=== PATIENT | female | born 1995 | race Caucasian/White ===

== ENCOUNTER 2018-10-08 18:00 | Emergency (ER) | payer MEDICARE, OTHER ==
[~2018-10-08] VITALS: Ht 157.5 cm; Wt 61.1 kg
--- NOTE | 2018-10-08 18:28 | PHYS DOC ---
Past History Past Medical History: No Pertinent History Past Surgical History: Other Additional Past Surgical Histo: wisdom teeth Smoking: Non-smoker Alcohol Use: Heavy Drug Use: Marijuana Adult General Chief Complaint Chief Complaint: ABDOMINAL PAIN HPI HPI Patient is a 23-year-old female presents with pelvic pain. This started 2-3 weeks ago, and has been getting worse over time. She has noted some bleeding with urination. This has been waxing and waning and not currently bleeding now. Uncertain as to whether the source is the urine or vaginal bleeding. She only notes that when she urinates. Denies any vaginal discharge. Increased pain with movement. No home medicines have been taken. Reports that the pain is severe. No radiation. No previous history of this discomfort. No prior surgical history.[] Review of Systems Review of Systems Constitutional: Denies fever or chills [] Eyes: Denies change in visual acuity, redness, or eye pain [] HENT: Denies nasal congestion or sore throat [] Respiratory: Denies cough or shortness of breath [] Cardiovascular: No chest pain or palpitations[] GI: See history of present illness[] : Denies dysuria, see history of present illness[] Musculoskeletal: Denies back pain or joint pain [] Integument: Denies rash or skin lesions [] Neurologic: Denies headache, focal weakness or sensory changes [] Endocrine: Denies polyuria or polydipsia [] All other systems were reviewed and found to be within normal limits, except as documented in this note. Allergies Allergies Allergies Coded Allergies Type Severity Reaction Last Updated Verified Penicillins Allergy Unknown 10/08/18 Yes amoxicillin Allergy Unknown 10/08/18 Yes aspirin Allergy Unknown 10/08/18 Yes Physical Exam Physical Exam Constitutional: Well developed, well nourished, no acute distress, non-toxic ap pearance. [] HENT: Normocephalic, atraumatic, bilateral external ears normal, oropharynx moist, no oral exudates, nose normal. [] Eyes: PERRLA, EOMI, conjunctiva normal, no discharge. [] Neck: Normal range of motion, no tenderness, supple, no stridor. [] Cardiovascular:Heart rate regular rhythm, no murmur [] Lungs & Thorax: Bilateral breath sounds clear to auscultation [] Abdomen: Bowel sounds normal, soft, lower abdominal tenderness, midline, no rebound, no guarding, no rigidity, no masses, no pulsatile masses. Pelvic exam: External genitalianormal, no lesions. Vaginal vaultno blood, no significant discharge. Cervixnulliparous os, no bleeding, no cervical motion tenderness[] Skin: Warm, dry, no erythema, no rash. [] Back: No tenderness, no CVA tenderness. [] Extremities: No tenderness, no cyanosis, no clubbing, ROM intact, no edema. [] Neurologic: Alert and oriented X 3, normal motor function, normal sensory function, no focal deficits noted. [] Psychologic: Affect normal, judgement normal, mood normal. [] EKG EKG [] Radiology/Procedures Radiology/Procedures PROCEDURE: PELVIS COMPLETE Pelvic ultrasound to include transabdominal and transvaginal imaging 10/08/2018 CLINICAL HISTORY: Pelvic pain. TECHNIQUE: Using the distended urinary bladder as a sonographic window, a real-time ultrasound examination of the pelvis was performed. Additionally in an attempt to better evaluate the uterus and adnexa, a transvaginal ultrasound study was performed. Multiple images were obtained. FINDINGS: The uterus is within normal limits in size and echogenicity. It measures 6.8 x 4.5 x 2.8 cm in longitudinal, transverse, and AP dimensions. The endometrial echo complex measures 4 mm in thickness which is within normal limits. A very small amount of fluid is seen within the endometrial canal. No focal abnormality of the uterus is seen. Both ovaries are within normal limits in size. The right ovary measures 2.7 x 2.1 x 1.7 cm in size. The left ovary measures 3.5 x 2.6 x 2.3 cm in size. A 2.2 cm cyst is seen within the left ovary. No free fluid is seen. IMPRESSION: 2.2 cm simple left ovarian cyst.[] Course & Med Decision Making Course & Med Decision Making Pertinent Labs and Imaging studies reviewed. (See chart for details) ED course: Patient arrived, was placed in bed, and tolerated exam well. Pelvic exam was performed with cooler conveyor loader. After the return of the urinalysis, she was given an initial dose of Rocephin which she tolerated well. She was transported to and from [facility] without any complications. After the return of the laboratory and imaging findings, these were discussed with the patient and her mother who voiced understanding. All questions were answered. She was discharged in improved condition. Medical decision making: There is no evidence of nor ectopic . There is evidence of a urinary tract infection given the to numerous to count red cells and white cells in the urine. Given the symptomatology, will also cover for the possibility of pelvic inflammatory disease. It is noted that she has evidence of bacterial vaginosis on the prep. As well as the discomfort, will treat these with Flagyl for the BV as well as PID, and doxycycline which should cover urine as well as PID. There is no evidence of a tubo-ovarian abscess. No evidence of appendicitis. Gonorrhea and chlamydia via PCR is p ending.[] Dragon Disclaimer Dragon Disclaimer This electronic medical record was generated, in whole or in part, using a voice recognition dictation system. Departure Departure: Impression: Primary Impression: Urinary tract infection Additional Impressions: Bacterial vaginosis Pelvic inflammatory disease Disposition: 01 HOME, SELF-CARE Condition: IMPROVED Patient Instructions: Bacterial Vaginosis, Pelvic Inflammatory Disease, Urinary Tract Infection Additional Instructions: Drink plenty of fluids. Follow-up with your regular doctor in 2 days. If you do not have regular doctor list of local clinics will be provided for you. Return to the ER if worsening pain or any other concerns. Scripts Tramadol Hcl (TRAMADOL HCL) 50 Mg Tablet 50 MG PO PRN Q6HRS PRN for PAIN, #20 TAB Prov: MAUREEN RITCHIE DO 10/08/18 Metronidazole (FLAGYL) 500 Mg Tablet 500 MG PO BID for BV for 14 Days, #28 TAB Prov: MAUREEN RITCHIE DO 10/08/18 Meloxicam (MELOXICAM) 7.5 Mg Tablet 7.5 MG PO DAILY for PAIN, #20 TAB Prov: MAUREEN RITCHEI DO 10/08/18 Doxycycline Hyclate (DOXYCYCLINE HYCLATE) 100 Mg Tablet 1 TAB PO BID for UTI, #28 TAB Prov: MAUREEN RITCHIE DO 10/08/18 Problem Qualifiers Primary Impression: Urinary tract infection Urinary tract infection type: site unspecified Hematuria presence: with hematuria Qualified Codes: N39.0 - Urinary tract infection, site not specified; R31.9 - Hematuria, unspecified MAUREEN RITCHIE DO Oct 08, 2018 18:28
[2018-10-08] MEDS ORDERED: ONDANSETRON PF 4 MG/2 ML VIAL. IV ONE (18:30)
[2018-10-08] MEDS ORDERED: IV NORMAL SALINE 1,000ML 1,000 ML IV ONE (18:30)
[2018-10-08] MEDS ORDERED: ACETAMINOPHEN 500 MG TABLET PO ONE (18:30)
[2018-10-08 19:06] LABS: PREG TEST PT QUAL NEGATIVE (NEG)
[2018-10-08 19:16] LABS: ALBUMIN 4.7 g/dL (3.4-5.0); ALBUMIN/GLOBULIN RATIO 1.3 (1.0-1.7); CALCIUM 10.3 mg/dL (8.5-10.1); CREATININE 0.9 mg/dL (0.6-1.0); GFR 76.3; POTASSIUM 3.4 mmol/L (3.5-5.1); TOTAL BILIRUBIN 0.9 mg/dL (0.2-1.0); TOTAL PROTEIN 8.3 g/dL (6.4-8.2)
[2018-10-08 19:16] LABS: BACTERIA,URINE MOD /HPF (0-FEW); BILIRUBIN,URINE NEG (NEG); CLARITY,URINE TURBID; COLOR,URINE YELLOW; GLUCOSE,URINE NEG (NEG); NITRITE,URINE NEG (NEG); RBC,URINE TNTC /HPF (0-2); SQUAMOUS EPITHELIAL CELL,UR MOD /LPF; UROBILINOGEN,URINE 1 mg/dL (0.2 mg/dL); WBC,URINE TNTC /HPF (0-4)
[2018-10-08 19:17] LABS: BASO # 0.1 x10^3/uL (0.0-0.2); BASO % 0 % (0-3); EOS % 0 % (0-3); HEMATOCRIT 46.6 % (36.0-47.0); HEMOGLOBIN 15.9 g/dL (12.0-15.5); LYMPH # 2.9 x10^3/uL (1.0-4.8); LYMPH % 18 % (24-48); MEAN CORPUSCULAR HEMOGLOBIN 30 pg (25-35); MEAN CORPUSCULAR HGB CONC 34 g/dL (31-37); MEAN CORPUSCULAR VOLUME 88 fL (79-100); MONO # 1.1 x10^3/uL (0.0-1.1); MONO % 7 % (0-9); NEUT # 12.2 x10^3uL (1.8-7.7); NEUT % 75 % (31-73); PLATELET COUNT 338 x10^3/uL (140-400); RED BLOOD COUNT 5.27 x10^6/uL (3.50-5.40); RED CELL DISTRIBUTION WIDTH 12.3 % (11.5-14.5); WHITE BLOOD COUNT 16.3 x10^3/uL (4.0-11.0)
[2018-10-08] MEDS ORDERED: IV NORMAL SALINE 50ML 50 ML ONE (19:51)
[2018-10-08] MEDS ORDERED: cefTRIAXone SODIUM 1 GM VIAL ONE (19:52)
[2018-10-08 20:16] LABS: % BASOS 2 % (0-3); % EOS 1 % (0-5); % LYMPHS 23 % (24-48); % MONOS 11 % (0-10); % SEGS 63 % (35-66)
[2018-10-08 20:18] LABS: ANISOCYTOSIS SLIGHT; PLT ESTIMATE ADEQUATE (ADEQUATE)
--- NOTE | 2018-10-08 21:09 | RAD ---
Pelvic ultrasound to include transabdominal and transvaginal imaging 10/08/2018 CLINICAL HISTORY: Pelvic pain. TECHNIQUE: Using the distended urinary bladder as a sonographic window, a real-time ultrasound examination of the pelvis was performed. Additionally in an attempt to better evaluate the uterus and adnexa, a transvaginal ultrasound study was performed. Multiple images were obtained. FINDINGS: The uterus is within normal limits in size and echogenicity. It measures 6.8 x 4.5 x 2.8 cm in longitudinal, transverse, and AP dimensions. The endometrial echo complex measures 4 mm in thickness which is within normal limits. A very small amount of fluid is seen within the endometrial canal. No focal abnormality of the uterus is seen. Both ovaries are within normal limits in size. The right ovary measures 2.7 x 2.1 x 1.7 cm in size. The left ovary measures 3.5 x 2.6 x 2.3 cm in size. A 2.2 cm cyst is seen within the left ovary. No free fluid is seen. IMPRESSION: 2.2 cm simple left ovarian cyst. Electronically signed by: Antoine Chin MD (10/08/2018 9:06 PM) [facility]
[2018-10-08] MEDS ORDERED: KETOROLAC 15 MG/ML VIAL. IV ONE (21:30)
[2018-10-08] MEDS ORDERED: DOXY100T PO (21:31)
[2018-10-08] MEDS ORDERED: MELO7.5T29 PO (21:31)
[2018-10-08] MEDS ORDERED: METR500T PO (21:31)
[2018-10-08] MEDS ORDERED: TRAM50TA PO (21:31)
[2018-10-08 21:40] VITALS: BP 120/70
== END 2018-10-08 21:44 | disposition home or self-care (01) ==
LOC: ER 18:00
DX: N39.0 Urinary tract infection, site not specified (principal); N76.0 Acute vaginitis; B96.89 Other specified bacterial agents as the cause of diseases classified elsewhere; N73.9 Female pelvic inflammatory disease, unspecified; N83.202 Unspecified ovarian cyst, left side; R31.9 Hematuria, unspecified; F10.20 Alcohol dependence, uncomplicated; Z88.0 Allergy status to penicillin; Z88.1 Allergy status to other antibiotic agents; Z88.6 Allergy status to analgesic agent; Y90.9 Presence of alcohol in blood, level not specified
CPT/HCPCS: 36415; 76856; 80053; 81001; 83690; 84702; 84703; 85007; 85025; 86901; 87086; 87491; 87591; 96365; 96375; 99285; J0696; J1885; J2405; Q0111; J7030

== ENCOUNTER 2019-11-12 18:55 | Emergency (ER) | payer OTHER ==
[~2019-11-12] VITALS: Ht 157.5 cm; Wt 61.1 kg
[~2019-11-12 18:55] MED LIST: DOXY100T PO; MELO7.5T29 PO; METR500T PO; TRAM50TA PO
--- NOTE | 2019-11-12 19:14 | PHYS DOC ---
Past History Past Medical History: No Pertinent History Past Surgical History: Other Additional Past Surgical Histo: wisdom teeth Smoking: Non-smoker Alcohol Use: Heavy Drug Use: Marijuana General Adult EDM: Chief Complaint: VAGINAL BLEEDING HPI: HPI: ".. I am having vaginal bleeding and have multiple babies.. my OB at [facility]... she said to come in to ED and get checked...." Patient is a 24 year old female who presents with threaten miscarry complaints.. Patient has had some cramping and increased spotting. This is patient's first . Previous ultrasound showed a possible 2 gestational sacs. Patient reports were no heartbeats noted. Patient estimates she is approximately 6 weeks . Has had 6 lifetime sex partners. No history of STDs. No history of trauma. No history of coagulopathy. No history of immunosuppression. No recent travel outside [facility]. 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 Review of Systems: Review of Systems: Constitutional: Denies fever or chills Eyes: Denies change in visual acuity HENT: Denies nasal congestion or sore throat Respiratory: Denies cough or shortness of breath Cardiovascular: Denies chest pain or edema GI: complaints of pelvic cramping and spotting, , nausea,. Denies vomiting, bloody stools or diarrhea : Denies dysuria Musculoskeletal: Denies back pain or joint pain Integument: Denies rash Neurologic: Denies headache, focal weakness or sensory changes Endocrine: Denies polyuria or polydipsia Lymphatic: Denies swollen glands Psychiatric: Denies depression or anxiety Heart Score: Risk Factors: Risk Factors: DM, Current or recent (<one month) smoker, HTN, HLP, family history of CAD, obesity. Risk Scores: Score 0 - 3: 2.5% MACE over next 6 weeks - Discharge Home Score 4 - 6: 20.3% MACE over next 6 weeks - Admit for Clinical Observation Score 7 - 10: 72.7% MACE over next 6 weeks - Early Invasive Strategies Family History: Family History: Noncontributory Current Medications: Current Meds: See nursing for home meds Allergies: Allergies: Allergies Coded Allergies Type Severity Reaction Last Updated Verified Penicillins Allergy Unknown 10/08/18 Yes amoxicillin Allergy Unknown 10/08/18 Yes aspirin Allergy Unknown 10/08/18 Yes Physical Exam: PE: Constitutional: Well developed, well nourished, emotional distress, non-toxic appearance. [] HENT: Normocephalic, atraumatic, bilateral external ears normal, oropharynx moist, no oral exudates, nose normal. [] Eyes: PERRLA, EOMI, conjunctiva normal, no discharge. [] Neck: Normal range of motion, no tenderness, supple, no stridor. [] Cardiovascular:Heart rate regular rhythm, no murmur [] Lungs & Thorax: Bilateral breath sounds equal at apex on auscultation [] Abdomen: Bowel sounds normal, soft, no tenderness, no masses, no pulsatile masses. [] Mild lower pelvic tenderness. No cervical motion tenderness. Os is closed. But there is some obvious spotting. Hard stool in rectal area. No rebound pain. Skin: Warm, dry, no erythema, no rash. [] Back: No tenderness, no CVA tenderness. [] Extremities: No tenderness, no cyanosis, no clubbing, ROM intact, no edema. No psoas sign. Neurologic: Alert and oriented X 3, normal motor function, normal sensory function, no focal deficits noted. [] Psychologic: Affect anxious, judgement normal, mood normal. [] EKG: EKG: [] Radiology/Procedures: Radiology/Procedures: [][place] [address] IMAGING REPORT Signed PATIENT: CHRISTOPHER RIVAS PACCOUNT: [id number] : 1995 LOCATION: ER AGE: 24 SEX: F EXAM STATUS: REG ER ORD. PHYSICIAN: RUKHSANA GONZALEZ MD REASON: preg. multi, bleeding pain PROCEDURE: PREG 1ST TRIMESTER Transvaginal OB ultrasound less than 14 weeks 11/12/2019 CLINICAL HISTORY: First trimester with vaginal bleeding. TECHNIQUE: A transvaginal pelvic ultrasound study was performed. Multiple images were obtained. FINDINGS: An irregular gestational sac is seen within the endometrial canal of the uterus. Within this gestational sac echogenic debris is seen. A enlarged deformed yolk sac is noted. An embryonic pole is seen which has a CRL of 6.3 mm. This corresponds to an estimated gestational age by ultrasound of 6 weeks 3 days plus or minus a standard deviation of 5 days. No embryonic cardiac activity is seen. These findings are consistent with embryonic demise. The right ovary is normal in size and echogenicity. It measures 2.3 x 2.1 x 1.5 cm in size. The left ovary is normal in size measuring 2.6 x 1.7 x 1.8 cm in size. Normal color-flow and pulse Doppler imaging to both ovaries is seen. No free fluid is noted. IMPRESSION: Findings consistent with embryonic demise. Electronically signed by: Antoine Muro MD (11/12/2019 9:20 PM) [id number] DICTATED AND SIGNED BY: ANTOINE MURO MD DATE: 11/12/192119 CC: RUKHSANA GONZALEZ MD; PCP,NO ~ Course & Med Decision Making: Course & Med Decision Making Pertinent Labs and Imaging studies reviewed. (See chart for details) Continue pad counts. Follow up cultures. 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 Patient to have repeat beta hCG in 3 days. Patient follow-up pending cultures. Patient take Tylenol for pain. Patient return if any concerns. Practice pelvic rest. Impression: 1. Threaten 2. O+ blood type 3. BHCG= 10,168 4. Hgb 13.2 [] Dragon Disclaimer: Dragon Disclaimer: This electronic medical record was generated, in whole or in part, using a voice recognition dictation system. Departure Departure: Disposition: 01 HOME/RESIDENCE PRIOR TO ADM Condition: STABLE Referrals: PCP,NO (PCP) Justification of Admission: Justification of Admission: Justification of Admission Dx: N/A Dragon Disclaimer This chart was dictated in whole or in part using Voice Recognition software in a busy, high-work load, and often noisy Emergency Department environment. It may contain unintended and wholly unrecognized errors or omissions. Dragon Disclaimer This chart was dictated in whole or in part using Voice Recognition software in a busy, high-work load, and often noisy Emergency Department environment. It may contain unintended and wholly unrecognized errors or omissions. RUKHSANA GONZALEZ MD Nov 12, 2019 19:14
[2019-11-12] MEDS ORDERED: IV RINGERS SOLUTION,LACTATED 1,000 ML IV SCH (19:17)
[2019-11-12 20:02] LABS: BASO # 0.1 x10^3/uL (0.0-0.2); BASO % 1 % (0-3); EOS # 0.1 x10^3/uL (0.0-0.7); EOS % 1 % (0-3); HEMATOCRIT 40.1 % (36.0-47.0); HEMOGLOBIN 13.7 g/dL (12.0-15.5); LYMPH # 2.2 x10^3/uL (1.0-4.8); LYMPH % 18 % (24-48); MEAN CORPUSCULAR HEMOGLOBIN 30 pg (25-35); MEAN CORPUSCULAR HGB CONC 34 g/dL (31-37); MEAN CORPUSCULAR VOLUME 89 fL (79-100); MONO # 0.7 x10^3/uL (0.0-1.1); MONO % 6 % (0-9); NEUT % 75 % (31-73); PLATELET COUNT 309 x10^3/uL (140-400); RED BLOOD COUNT 4.53 x10^6/uL (3.50-5.40); RED CELL DISTRIBUTION WIDTH 12.9 % (11.5-14.5)
[2019-11-12 20:08] LABS: BARBITURATES NEG (NEG); BENZODIAZEPINES NEG (NEG); CANNABINOIDS NEG (NEG); COCAINE NEG (NEG); METHADONE NEG (NEG); OPIATES NEG (NEG); PHENCYCLIDINE NEG (NEG)
[2019-11-12 20:08] LABS: CALCIUM 9.1 mg/dL (8.5-10.1); CREATININE 0.8 mg/dL (0.6-1.0); GFR 86.7; POTASSIUM 3.5 mmol/L (3.5-5.1)
[2019-11-12 20:13] LABS: AMPHETAMINE/METHAMPHETAMINE NEG (NEG)
[2019-11-12 20:14] LABS: ALBUMIN 3.9 g/dL (3.4-5.0); DIRECT BILIRUBIN 0.1 mg/dL (0.0-0.2); TOTAL BILIRUBIN 0.4 mg/dL (0.2-1.0); TOTAL PROTEIN 7.4 g/dL (6.4-8.2)
[2019-11-12 20:22] LABS: BILIRUBIN,URINE NEG (NEG); CLARITY,URINE CLEAR; COLOR,URINE YELLOW; GLUCOSE,URINE NEG (NEG)
[2019-11-12 20:23] LABS: BACTERIA,URINE 0 /HPF (0-FEW); NITRITE,URINE NEG (NEG); SQUAMOUS EPITHELIAL CELL,UR FEW /LPF; UROBILINOGEN,URINE 0.2 mg/dL (0.2 mg/dL)
[2019-11-12 21:13] VITALS: BP 136/76
--- NOTE | 2019-11-12 21:23 | RAD ---
Transvaginal OB ultrasound less than 14 weeks 11/12/2019 CLINICAL HISTORY: First trimester with vaginal bleeding. TECHNIQUE: A transvaginal pelvic ultrasound study was performed. Multiple images were obtained. FINDINGS: An irregular gestational sac is seen within the endometrial canal of the uterus. Within this gestational sac echogenic debris is seen. A enlarged deformed yolk sac is noted. An embryonic pole is seen which has a CRL of 6.3 mm. This corresponds to an estimated gestational age by ultrasound of 6 weeks 3 days plus or minus a standard deviation of 5 days. No embryonic cardiac activity is seen. These findings are consistent with embryonic demise. The right ovary is normal in size and echogenicity. It measures 2.3 x 2.1 x 1.5 cm in size. The left ovary is normal in size measuring 2.6 x 1.7 x 1.8 cm in size. Normal color-flow and pulse Doppler imaging to both ovaries is seen. No free fluid is noted. IMPRESSION: Findings consistent with embryonic demise. Electronically signed by: Antoine Chin MD (11/12/2019 9:20 PM) [id number]
[2019-11-14 23:06] LABS: CHLAMYDIA PROBE Negative (Negative)
== END 2019-11-12 23:10 | disposition home or self-care (01) ==
LOC: ER 18:55
DX: O20.0 Threatened abortion (principal); O99.311 Alcohol use complicating pregnancy, first trimester; F10.10 Alcohol abuse, uncomplicated; Z3A.01 Less than 8 weeks gestation of pregnancy; Z88.0 Allergy status to penicillin; Z88.1 Allergy status to other antibiotic agents; Z88.6 Allergy status to analgesic agent; Y90.9 Presence of alcohol in blood, level not specified
CPT/HCPCS: 36415; 76801; 80048; 80076; 80307; 81001; 81025; 84702; 85025; 85610; 85730; 86900; 86901; 87491; 87591; 96360; 99284; J7120; Q0111

== ENCOUNTER 2021-04-20 13:13 | Emergency (ER) | payer OTHER ==
[~2021-04-20] VITALS: Ht 162.6 cm; Wt 61.6 kg
[2021-04-20] MEDS ORDERED: IV NORMAL SALINE 1,000ML 1,000 ML IV ONE (15:00)
--- NOTE | 2021-04-20 15:20 | EKG ---
[address] [address] Test Date: 2021-04-20 Test Time: 15:14:43 Pat Name: CHRISTOPHER RIVAS Department: Room: Gender: F Bag Turner: SHERIF : 1995 Requested By: CARSON HAYES Order Number: [id number] Reading MD: Cuauhtemoc Nixon Measurements Intervals [place] Rate: 47 P: 259 ND: 124 QRS: 70 QRSD: 72 T: 48 QT: 426 QTc: 380 Interpretive Statements SINUS RHYTHM ATRIAL ABNORMALITY NON SPECIFIC T WAVE CHANGES Electronically Signed On 04-24-2021 16:50:56 WEATHERIZATION DIRECTOR by Cuauhtemoc Nixon
[2021-04-20 15:46] LABS: CALCIUM 8.5 mg/dL (8.5-10.1); CREATININE 0.6 mg/dL (0.6-1.0); GFR 119.9
--- NOTE | 2021-04-20 15:46 | PHYS DOC ---
Past History Past Medical History: No Pertinent History Past Surgical History: , Hip Replacement, Other Additional Past Surgical Histo: wisdom teeth Smoking: Non-smoker Alcohol Use: None Drug Use: Marijuana General Adult EDM: Chief Complaint: CHEST PAIN HPI: HPI: 25-year-old female presents with chest pain. She describes it as a heaviness that started this morning. The patient is 5 days from a . There were no complications with delivery. Patient has no medical conditions prior to delivery. 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 Patient feels like her heart is not beating very fast. She also felt like she was having some peripheral swelling that she just assumed this was due to postdelivery. The swelling is a bit better today but the chest pain developed. She denies fever or chills. She did call her OBs office who advised that she come to the emergency room. Patient denies syncopal episode. She has general abdominal soreness and fatigue. Review of Systems: Review of Systems: Constitutional: Denies fever or chills Eyes: Denies change in visual acuity HENT: Denies nasal congestion or sore throat Respiratory: Denies cough or shortness of breath Cardiovascular: Chest pain GI: Denies new abdominal pain, nausea, vomiting, bloody stools or diarrhea : Denies dysuria Musculoskeletal: Denies back pain or joint pain Integument: Denies rash Neurologic: Denies headache, focal weakness or sensory changes Endocrine: Denies polyuria or polydipsia Lymphatic: Denies swollen glands Psychiatric: Denies depression or anxiety Current Medications: Current Meds: Current Medications Medications (Trade) Dose Ordered [facility] Start Time Stop Time Status Last Admin Dose Admin Sodium Chloride 1,000 ml @ 1,000 mls/hr 1X ONCE 04/20/21 15:00 04/20/21 15:59 Allergies: Allergies: Allergies Coded Allergies Type Severity Reaction Last Updated Verified Penicillins Allergy Unknown 10/08/18 Yes amoxicillin Allergy Unknown 10/08/18 Yes aspirin Allergy Unknown 10/08/18 Yes Physical Exam: PE: Constitutional: Well developed, well nourished, no acute distress, non-toxic appearance. [] HENT: Normocephalic, atraumatic, bilateral external ears normal, oropharynx moist, no oral exudates, nose normal. [] Eyes: PERRLA, EOMI, conjunctiva normal, no discharge. [] Neck: Normal range of motion, no tenderness, supple, no stridor. [] Cardiovascular: Heart rate 47, regular rhythm, no murmur [] Lungs & Thorax: Bilateral breath sounds clear to auscultation [] Abdomen: Bowel sounds normal, soft, scar and appropriate healing, gen eralized lower tenderness, no masses, no pulsatile masses. [] Skin: Warm, dry, no erythema, no rash. [] Back: No tenderness, no CVA tenderness. [] Extremities: No tenderness, no cyanosis, no clubbing, ROM intact, no edema. [] Neurologic: Alert and oriented X 3, normal motor function, normal sensory function, no focal deficits noted. [] Psychologic: Affect normal, judgement normal, mood normal. [] Current Patient Data: Vital Signs: Vital Signs Date Time Temp Pulse Resp B/P (MAP) Pulse Ox O2 Delivery O2 Flow Rate FiO2 04/20/21 15:01 98.2 47 16 139/71 (93) 98 Room Air EKG: EKG: [] Radiology/Procedures: Radiology/Procedures: [] Heart Score: C/O Chest Pain: Yes HEART Score for Chest Pain: HEART Score for Chest Pain Response (Comments) Value History Moderately Suspicious 1 ECG Nonspecific Repolarizatio 1 Age < 45 0 Risk Factors No Risk Factors 0 Total 2 Risk Factors: Risk Factors: DM, Current or recent (<one month) smoker, HTN, HLP, family history of CAD, obesity. Risk Scores: Score 0 - 3: 2.5% MACE over next 6 weeks - Discharge Home Score 4 - 6: 20.3% MACE over next 6 weeks - Admit for Clinical Observation Score 7 - 10: 72.7% MACE over next 6 weeks - Early Invasive Strategies Course & Med Decision Making: Course & Med Decision Making Pertinent Labs and Imaging studies reviewed. (See chart for details) The patient's labs are unremarkable. Her EKG is significant for sinus bradyca rdia. Urinalysis is negative for infection. I have discussed the case with cardiology. Sadaf discussed it with Dr. White. No concerns from their end. This could be transient bradycardia postdelivery that will self resolve. Have advised the patient to stay well-hydrated and follow-up as previously planned with OB. If she becomes symptomatic, she is welcome to return to the emergency room or go to the hospital where she delivered. She stable for discharge at this time. [] Dragon Disclaimer: Dragon Disclaimer: This electronic medical record was generated, in whole or in part, using a voice recognition dictation system. Departure Departure: Impression: Primary Impression: Chest pain Additional Impression: Sinus bradycardia Disposition: HOME / SELF CARE / HOMELESS Condition: STABLE Referrals: PCP,UNKNOWN (PCP) Patient Instructions: Bradycardia-Brief CARSON HAYES DO Apr 20, 2021 15:46
[2021-04-20 15:47] LABS: BASO # 0.1 x10^3/uL (0.0-0.2); BASO % 1 % (0-3); EOS # 0.1 x10^3/uL (0.0-0.7); EOS % 1 % (0-3); HEMATOCRIT 37.9 % (36.0-47.0); HEMOGLOBIN 12.6 g/dL (12.0-15.5); LYMPH % 23 % (24-48); MEAN CORPUSCULAR HEMOGLOBIN 31 pg (25-35); MEAN CORPUSCULAR HGB CONC 33 g/dL (31-37); MEAN CORPUSCULAR VOLUME 92 fL (79-100); MONO # 0.5 x10^3/uL (0.0-1.1); MONO % 5 % (0-9); NEUT # 6.1 x10^3uL (1.8-7.7); NEUT % 70 % (31-73); PLATELET COUNT 265 x10^3/uL (140-400); RED BLOOD COUNT 4.11 x10^6/uL (3.50-5.40); RED CELL DISTRIBUTION WIDTH 13.5 % (11.5-14.5); WHITE BLOOD COUNT 8.7 x10^3/uL (4.0-11.0)
[2021-04-20 15:52] LABS: ALBUMIN 2.7 g/dL (3.4-5.0); ALBUMIN/GLOBULIN RATIO 0.8 (1.0-1.7); TOTAL BILIRUBIN 0.3 mg/dL (0.2-1.0)
--- NOTE | 2021-04-20 15:54 | RAD ---
XR CHEST 1V History: Chest pain Comparison: None. Technique: AP radiograph of the chest. Findings: The lungs are adequately and symmetrically inflated. No airspace consolidation, pleural effusion or p neumothorax. The cardiomediastinal silhouette and pulmonary vasculature are within normal limits. No acute osseous abnormality. Soft tissues are unremarkable. Impression: 1. No acute cardiopulmonary process. Electronically signed by: Marc Hernandez MD (04/20/2021 3:51 PM) [id number]
[2021-04-20 16:24] LABS: BACTERIA,URINE 0 /HPF (0-FEW); BILIRUBIN,URINE NEG (NEG); CLARITY,URINE CLEAR; COLOR,URINE YELLOW; GLUCOSE,URINE NEG (NEG); NITRITE,URINE NEG (NEG); WBC,URINE OCC /HPF (0-4)
[2021-04-20 16:25] LABS: SQUAMOUS EPITHELIAL CELL,UR MANY /LPF
[2021-04-20 16:28] VITALS: BP 135/69
== END 2021-04-20 17:07 | disposition home or self-care (01) ==
LOC: ER 13:13
DX: O99.893 Other specified diseases and conditions complicating puerperium (principal); R00.1 Bradycardia, unspecified; R07.89 Other chest pain; Z98.890 Other specified postprocedural states; Z88.0 Allergy status to penicillin; Z88.1 Allergy status to other antibiotic agents; Z88.6 Allergy status to analgesic agent
CPT/HCPCS: 36415; 71045; 80053; 81001; 84484; 85025; 87086; 93005; 96360; 99285; J7030